=== PATIENT | female | born 1955 | race Caucasian/White ===

== ENCOUNTER 2021-01-07 23:29 | Inpatient (IN) | payer MEDICARE, OTHER ==
[~2021-01-07] VITALS: Ht 162.6 cm; Wt 62.6 kg
[2021-01-08] MEDS ORDERED: TIOT18CA3 IH (00:06)
[2021-01-08] MEDS ORDERED: BACL10TA PO (00:06)
[2021-01-08] MEDS ORDERED: LEVO175T7 PO (00:06)
[2021-01-08] MEDS ORDERED: FORMOTEROL INH (00:06)
[2021-01-08] MEDS ORDERED: THIA100T13 PO (00:06)
[2021-01-08] MEDS ORDERED: MOMETASONE INH (00:06)
[2021-01-08] MEDS ORDERED: TRAM50TA2 PO (00:06)
[2021-01-08] MEDS ORDERED: LACT10SO3 PO (00:06)
[2021-01-08] MEDS ORDERED: IPRA0.2S48 NS (00:06)
[2021-01-08] MEDS ORDERED: ENOX40DI9 SQ (00:06)
[2021-01-08] MEDS ORDERED: QUET25TA PO ×2 (00:06)
[2021-01-08] MEDS ORDERED: ESTR0.623 VG (00:06)
[2021-01-08 00:44] LABS: HEMATOCRIT 36.6 % (31.2-41.9); MEAN CORPUSCULAR HEMOGLOBIN 28.1 uug (24.7-32.8); MEAN CORPUSCULAR VOLUME 86.4 fL (75.5-95.3); PLATELET COUNT (AUTO) 333 K/uL (179-408)
[2021-01-08 00:51] LABS: CREATININE 0.8 mg/dL (0.6-1.3); POTASSIUM 3.9 mmol/L (3.5-5.1)
[2021-01-08 01:03] LABS: MAGNESIUM 1.9 mg/dL (1.8-2.4)
[2021-01-08 01:25] VITALS: BP 108/66
[2021-01-08] MEDS ORDERED: ACETAMINOPHEN 325 MG TABLET PO PRN (01:30)
[2021-01-08] MEDS ORDERED: MAG HYDROX/AL HYDROX/SIMETH 30 ML LIQUID UDC PO PRN (01:30)
[2021-01-08] MEDS ORDERED: BLOOD SUGAR DIAGNOSTIC 1 EACH STRIP VI ONE (01:30)
[2021-01-08] MEDS ORDERED: MAGNESIUM HYDROXIDE 30 ML LIQUID UDC PO PRN (01:30)
[2021-01-08] MEDS ORDERED: LORAZEPAM 0.5 MG TABLET PO PRN (01:30)
[2021-01-08] MEDS: TEMAZEPAM 7.5 MG CAPSULE PO PRN ×2 (02:14→21:05)
[2021-01-08 07:58] VITALS: BP 107/48
[2021-01-08] MEDS: LEVOTHYROXINE SODIUM 175 MCG TABLET PO SCH (08:26)
[2021-01-08] MEDS: BACLOFEN 10 MG TABLET PO SCH ×2 (08:53→16:27)
[2021-01-08] MEDS: THIAMINE HCL 100 MG TABLET PO SCH (08:53)
[2021-01-08] MEDS: LACTULOSE 20 G/30 ML LIQUID UDC PO SCH (08:54)
[2021-01-08] MEDS: ENOXAPARIN SODIUM 40 MG/0.4 ML DISP.SYRIN SQ SCH (08:56)
[2021-01-08] MEDS ORDERED: IPRATROPIUM BROMIDE NASAL 15 ML BOTTLE 42 MCG/SPRAY NS PRN (09:00)
[2021-01-08] MEDS: TRAMADOL HCL 50 MG TABLET PO PRN (12:18)
[2021-01-08 16:01] VITALS: BP 106/64
[2021-01-08] MEDS: ESCITALOPRAM OXALATE 10 MG TABLET PO SCH (16:27)
[2021-01-08 20:00] VITALS: BP 120/74
[2021-01-08] MEDS: QUETIAPINE FUMARATE 25 MG TABLET PO SCH (21:05)
[2021-01-09] MEDS: LEVOTHYROXINE SODIUM 175 MCG TABLET PO SCH (06:12)
[2021-01-09 07:05] LABS: *BILIRUBIN,URIN NEGATIVE (NEGATIVE); *BLOOD, URINE NEGATIVE (NEGATIVE); *CLARITY,URINE SLIGHTLY CLOUDY (CLEAR); *COLOR,URINE YELLOW (YELLOW); *KETONES,URINE NEGATIVE (NEGATIVE); *UROBILINOGEN,URINE 0.2 E.U./dl (NORMAL); LEUKOCYTE ESTERASE ,URINE NEGATIVE (NEGATIVE); NITRITE, URINE NEGATIVE (NEGATIVE); UGLUCOSE NEGATIVE (NEGATIVE)
[2021-01-09 07:30] VITALS: BP 137/65
[2021-01-09] MEDS: LACTULOSE 20 G/30 ML LIQUID UDC PO SCH (08:57)
[2021-01-09] MEDS: BACLOFEN 10 MG TABLET PO SCH ×2 (08:58→16:44)
[2021-01-09] MEDS: THIAMINE HCL 100 MG TABLET PO SCH (08:58)
[2021-01-09] MEDS: ESCITALOPRAM OXALATE 10 MG TABLET PO SCH (08:59)
[2021-01-09] MEDS: ENOXAPARIN SODIUM 40 MG/0.4 ML DISP.SYRIN SQ SCH (09:12)
[2021-01-09 11:14] LABS: BACTERIA,URINE MODERATE /HPF (NONE SEEN); RBC,URINE 0-3 /HPF (0-3); SQUAMOUS EPITHELIAL CELL,UR FEW /HPF (NONE SEEN)
[2021-01-09 15:05] VITALS: BP 122/72
[2021-01-09] MEDS: TRAMADOL HCL 50 MG TABLET PO PRN (16:55)
[2021-01-09 20:06] VITALS: BP 146/71
[2021-01-09] MEDS: QUETIAPINE FUMARATE 25 MG TABLET PO SCH (20:08)
[2021-01-09] MEDS: TEMAZEPAM 7.5 MG CAPSULE PO PRN (21:46)
[2021-01-10] MEDS: LEVOTHYROXINE SODIUM 175 MCG TABLET PO SCH (06:01)
[2021-01-10 07:30] VITALS: BP 118/66
[2021-01-10] MEDS: BACLOFEN 10 MG TABLET PO SCH ×2 (08:00→17:06)
[2021-01-10] MEDS: THIAMINE HCL 100 MG TABLET PO SCH (08:00)
[2021-01-10] MEDS: ESCITALOPRAM OXALATE 10 MG TABLET PO SCH (08:01)
[2021-01-10] MEDS: LACTULOSE 20 G/30 ML LIQUID UDC PO SCH (08:03)
[2021-01-10] MEDS: TRAMADOL HCL 50 MG TABLET PO PRN ×2 (13:08→19:31)
[2021-01-10] MEDS: NITROFURANTOIN/NITROFURAN MAC 100 MG CAPSULE PO SCH ×2 (14:30→20:05)
[2021-01-10 15:05] VITALS: BP 122/79
[2021-01-10] MEDS: QUETIAPINE FUMARATE 25 MG TABLET PO SCH (20:06)
[2021-01-10 20:08] VITALS: BP 135/63
[2021-01-11] MEDS: LEVOTHYROXINE SODIUM 175 MCG TABLET PO SCH (06:16)
[2021-01-11 07:30] VITALS: BP 106/46
[2021-01-11] MEDS: NITROFURANTOIN/NITROFURAN MAC 100 MG CAPSULE PO SCH ×2 (08:13→20:30)
[2021-01-11] MEDS: ESCITALOPRAM OXALATE 10 MG TABLET PO SCH (08:13)
[2021-01-11] MEDS: LACTULOSE 20 G/30 ML LIQUID UDC PO SCH (08:13)
[2021-01-11] MEDS: BACLOFEN 10 MG TABLET PO SCH ×2 (08:13→17:05)
[2021-01-11] MEDS: THIAMINE HCL 100 MG TABLET PO SCH (08:13)
[2021-01-11] MEDS: TRAMADOL HCL 50 MG TABLET PO PRN ×2 (13:24→20:37)
[2021-01-11 16:02] VITALS: BP 137/59
[2021-01-11 20:06] VITALS: BP 127/72
[2021-01-11] MEDS: QUETIAPINE FUMARATE 25 MG TABLET PO SCH (20:30)
[2021-01-11] MEDS: THERAHONEY GEL 1.5 OZ TUBE TOP SCH (20:50)
[2021-01-12] MEDS: LEVOTHYROXINE SODIUM 175 MCG TABLET PO SCH (06:10)
[2021-01-12 07:30] VITALS: BP 125/61
[2021-01-12] MEDS: ESCITALOPRAM OXALATE 10 MG TABLET PO SCH (08:47)
[2021-01-12] MEDS: NITROFURANTOIN/NITROFURAN MAC 100 MG CAPSULE PO SCH ×2 (08:47→20:31)
[2021-01-12] MEDS: LACTULOSE 20 G/30 ML LIQUID UDC PO SCH (08:47)
[2021-01-12] MEDS: THIAMINE HCL 100 MG TABLET PO SCH (08:47)
[2021-01-12] MEDS: BACLOFEN 10 MG TABLET PO SCH ×2 (08:47→17:51)
[2021-01-12] MEDS: THERAHONEY GEL 1.5 OZ TUBE TOP SCH (14:42)
[2021-01-12 16:00] VITALS: BP 128/61
[2021-01-12 20:09] VITALS: BP 111/65
[2021-01-12] MEDS: QUETIAPINE FUMARATE 25 MG TABLET PO SCH (20:31)
[2021-01-13] MEDS: LEVOTHYROXINE SODIUM 175 MCG TABLET PO SCH (06:59)
[2021-01-13 07:30] VITALS: BP 95/62
[2021-01-13] MEDS: NITROFURANTOIN/NITROFURAN MAC 100 MG CAPSULE PO SCH ×2 (08:37→20:12)
[2021-01-13] MEDS: THIAMINE HCL 100 MG TABLET PO SCH (08:37)
[2021-01-13] MEDS: LACTULOSE 20 G/30 ML LIQUID UDC PO SCH (08:37)
[2021-01-13] MEDS: BACLOFEN 10 MG TABLET PO SCH ×2 (08:37→16:27)
[2021-01-13] MEDS: ESCITALOPRAM OXALATE 10 MG TABLET PO SCH (08:37)
[2021-01-13] MEDS: THERAHONEY GEL 1.5 OZ TUBE TOP SCH (09:00)
[2021-01-13] MEDS: TRAMADOL HCL 50 MG TABLET PO PRN ×2 (11:27→20:15)
[2021-01-13 16:00] VITALS: BP 117/63
[2021-01-13 20:00] VITALS: BP 135/81
[2021-01-13] MEDS: QUETIAPINE FUMARATE 25 MG TABLET PO SCH (20:12)
[2021-01-14] MEDS: TRAMADOL HCL 50 MG TABLET PO PRN ×2 (05:56→20:47)
[2021-01-14] MEDS: LEVOTHYROXINE SODIUM 175 MCG TABLET PO SCH (05:59)
[2021-01-14 07:47] VITALS: BP 95/57
[2021-01-14] MEDS: NITROFURANTOIN/NITROFURAN MAC 100 MG CAPSULE PO SCH ×2 (09:28→20:24)
[2021-01-14] MEDS: THIAMINE HCL 100 MG TABLET PO SCH (09:28)
[2021-01-14] MEDS: BACLOFEN 10 MG TABLET PO SCH ×2 (09:28→16:19)
[2021-01-14] MEDS: ESCITALOPRAM OXALATE 10 MG TABLET PO SCH (09:28)
[2021-01-14] MEDS: LACTULOSE 20 G/30 ML LIQUID UDC PO SCH (09:30)
[2021-01-14] MEDS: THERAHONEY GEL 1.5 OZ TUBE TOP SCH (09:36)
[2021-01-14 16:29] VITALS: BP 111/58
[2021-01-14 20:00] VITALS: BP 114/74
[2021-01-14] MEDS: QUETIAPINE FUMARATE 25 MG TABLET PO SCH (20:24)
[2021-01-15] MEDS: LEVOTHYROXINE SODIUM 175 MCG TABLET PO SCH (06:03)
[2021-01-15 07:52] VITALS: BP 102/55
[2021-01-15] MEDS: BACLOFEN 10 MG TABLET PO SCH ×2 (08:43→17:12)
[2021-01-15] MEDS: ESCITALOPRAM OXALATE 10 MG TABLET PO SCH (08:44)
[2021-01-15] MEDS: THIAMINE HCL 100 MG TABLET PO SCH (08:44)
[2021-01-15] MEDS: LACTULOSE 20 G/30 ML LIQUID UDC PO SCH (08:44)
[2021-01-15] MEDS: NITROFURANTOIN/NITROFURAN MAC 100 MG CAPSULE PO SCH ×2 (08:44→20:11)
[2021-01-15] MEDS: THERAHONEY GEL 1.5 OZ TUBE TOP SCH (08:45)
[2021-01-15] MEDS: TRAMADOL HCL 50 MG TABLET PO PRN ×2 (13:52→19:56)
[2021-01-15 16:55] VITALS: BP 101/59
[2021-01-15 19:59] VITALS: BP 109/61
[2021-01-15] MEDS: QUETIAPINE FUMARATE 25 MG TABLET PO SCH (20:13)
[2021-01-16] MEDS: LEVOTHYROXINE SODIUM 175 MCG TABLET PO SCH (06:51)
[2021-01-16 07:30] VITALS: BP 92/52
[2021-01-16] MEDS: LACTULOSE 20 G/30 ML LIQUID UDC PO SCH (08:16)
[2021-01-16] MEDS: NITROFURANTOIN/NITROFURAN MAC 100 MG CAPSULE PO SCH ×2 (08:17→20:24)
[2021-01-16] MEDS: ESCITALOPRAM OXALATE 10 MG TABLET PO SCH (08:17)
[2021-01-16] MEDS: BACLOFEN 10 MG TABLET PO SCH ×2 (08:17→17:09)
[2021-01-16] MEDS: THIAMINE HCL 100 MG TABLET PO SCH (08:17)
[2021-01-16] MEDS: THERAHONEY GEL 1.5 OZ TUBE TOP SCH (08:18)
[2021-01-16] MEDS: TRAMADOL HCL 50 MG TABLET PO PRN ×2 (10:36→20:24)
[2021-01-16] MEDS ORDERED: FLUCONAZOLE 100 MG TABLET PO ONE (12:00)
[2021-01-16 15:09] VITALS: BP 112/62
[2021-01-16 20:20] VITALS: BP 114/64
[2021-01-16] MEDS: QUETIAPINE FUMARATE 25 MG TABLET PO SCH (20:24)
[2021-01-17] MEDS: LEVOTHYROXINE SODIUM 175 MCG TABLET PO SCH (06:23)
[2021-01-17 07:30] VITALS: BP 102/47
[2021-01-17] MEDS: THIAMINE HCL 100 MG TABLET PO SCH (08:56)
[2021-01-17] MEDS: BACLOFEN 10 MG TABLET PO SCH ×2 (08:56→16:09)
[2021-01-17] MEDS: NITROFURANTOIN/NITROFURAN MAC 100 MG CAPSULE PO SCH (08:56)
[2021-01-17] MEDS: ESCITALOPRAM OXALATE 10 MG TABLET PO SCH (08:56)
[2021-01-17] MEDS: LACTULOSE 20 G/30 ML LIQUID UDC PO SCH (08:58)
[2021-01-17] MEDS: THERAHONEY GEL 1.5 OZ TUBE TOP SCH (09:03)
[2021-01-17] MEDS: ASPIRIN EC 81 MG TABLET.DR PO SCH (11:06)
[2021-01-17] MEDS: TRAMADOL HCL 50 MG TABLET PO PRN ×2 (13:41→20:25)
[2021-01-17 15:44] VITALS: BP 107/62
[2021-01-17 20:08] VITALS: BP 109/66
[2021-01-17] MEDS: QUETIAPINE FUMARATE 25 MG TABLET PO SCH (20:24)
[2021-01-17] MEDS ORDERED: ATORVASTATIN 20 MG TABLET PO SCH (21:00)
[2021-01-18] MEDS: LEVOTHYROXINE SODIUM 175 MCG TABLET PO SCH (06:09)
[2021-01-18 07:30] VITALS: BP 97/52
[2021-01-18] MEDS: LACTULOSE 20 G/30 ML LIQUID UDC PO SCH (09:00)
[2021-01-18] MEDS: BACLOFEN 10 MG TABLET PO SCH (09:04)
[2021-01-18] MEDS: ASPIRIN EC 81 MG TABLET.DR PO SCH (09:04)
[2021-01-18] MEDS: ESCITALOPRAM OXALATE 10 MG TABLET PO SCH (09:05)
[2021-01-18] MEDS: THIAMINE HCL 100 MG TABLET PO SCH (09:05)
[2021-01-18] MEDS: THERAHONEY GEL 1.5 OZ TUBE TOP SCH (11:00)
== END 2021-01-18 13:45 | disposition home or self-care (01) | DRG 885 ==
LOC: ER 23:32 → GPS 01-08 01:03
PROVIDERS: ADMIT Psychiatry & Neurology Psychiatry; ATTEND Registered Nurse
PROC: 0HDMXZZ Extraction of Right Foot Skin, External Approach (ICD-10-PCS; principal; 2021-01-08)
DX: F33.2 Major depressive disorder, recurrent severe without psychotic features (principal); B95.2 Enterococcus as the cause of diseases classified elsewhere; N39.0 Urinary tract infection, site not specified; L97.418 Non-pressure chronic ulcer of right heel and midfoot with other specified severity; T38.1X2D Poisoning by thyroid hormones and substitutes, intentional self-harm, subsequent encounter; T40.4 Poisoning by, adverse effect of and underdosing of other synthetic narcotics; T42.8X2D Poisoning by antiparkinsonism drugs and other central muscle-tone depressants, intentional self-harm, subsequent encounter; J45.909 Unspecified asthma, uncomplicated; E89.0 Postprocedural hypothyroidism; Z79.890 Hormone replacement therapy; R23.8 Other skin changes; Z98.1 Arthrodesis status; Z73.6 Limitation of activities due to disability; Z96.642 Presence of left artificial hip joint; E78.5 Hyperlipidemia, unspecified; M19.90 Unspecified osteoarthritis, unspecified site; Z20.822 Contact with and (suspected) exposure to COVID-19; L89.020 Pressure ulcer of left elbow, unstageable; F10.21 Alcohol dependence, in remission
CPT/HCPCS: 36415; 83735; 85025; 87070; 87077; 87086; 93005; J1650